=== PATIENT | male | born 1960 | race Caucasian/White ===

== ENCOUNTER 2024-10-18 10:14 | Inpatient (IN) | payer OTHER ==
[~2024-10-18] VITALS: Ht 177.8 cm; Wt 88.5 kg
[2024-10-18] VITALS (16 sets, daily range): BP systolic 112–143; BP diastolic 59–86; PULSE 56–95; RESP 11–20; TEMP 97.8–98.9; O2SAT 95–99
[2024-10-18] MEDS ORDERED: SODIUM CHLORIDE 0.9% 1000ML 1,000 ML ONE (10:17)
[2024-10-18 10:25] LABS: BASOPHILS # (AUTO) 0.1 (0.0-0.1); BASOPHILS % 0.8 % (0.0-1.0); EOSINOPHILS # (AUTO) 0.2 (0.0-0.4); EOSINOPHILS % 1.8 % (0.0-6.0); HEMATOCRIT 52.5 % (38.2-49.6); HEMOGLOBIN 16.8 g/dL (14.0-18.0); LYMPHOCYTES # (AUTO) 2.9 (1.0-3.2); LYMPHOCYTES % 31.6 % (18.0-39.1); MEAN CORPUSCULAR HEMOGLOBIN 32.1 pg (28-32); MEAN CORPUSCULAR VOLUME 100.2 fL (81-99); MONOCYTES # (AUTO) 0.7 (0.2-0.8); MONOCYTES % 7.9 % (4.4-11.3); NEUTROPHILS # (AUTO) 5.3 (2.1-6.9); NEUTROPHILS % 57.6 % (38.7-80.0); PLATELET COUNT 195 x10e3/uL (140-360); RED BLOOD COUNT 5.24 x10e6/uL (4.3-5.7); RED CELL DISTRIBUTION WIDTH 12.4 % (11.7-14.4); WHITE BLOOD COUNT 9.27 x10e3/uL (4.8-10.8)
[2024-10-18] MEDS ORDERED: CLOPIDOGREL BISULFATE 75 MG TAB PO ONE (10:30)
[2024-10-18] MEDS ORDERED: Morphine 4mg INJECTION 4 MG/ML INJ IV STA (10:44)
[2024-10-18 11:08] LABS: ALBUMIN 4.3 g/dL (3.5-5.0); ALBUMIN/GLOBULIN RATIO 1.3 (0.8-2.0); ANION GAP 18.6 mmol/L (8-16); BILIRUBIN,TOTAL 0.5 mg/dL (0.2-1.2); CALCIUM 9.7 mg/dL (8.4-10.2); CREATININE, SERUM 1.1 mg/dL (0.72-1.25); MAGNESIUM 1.9 MG/DL (1.3-2.1); POTASSIUM 4.6 mmol/L (3.5-5.1); TOTAL PROTEIN 7.7 g/dL (6.5-8.1)
[2024-10-18 11:15] LABS: TROPONIN I 0.42 ng/mL (0-0.300)
[2024-10-18] MEDS ORDERED: Morphine 2mg Syringe 2 MG/ML SYR IV PRN (11:15)
[2024-10-18] MEDS ORDERED: ACETAMINOPHEN 325 MG TAB PO PRN ×2 (11:15→13:45)
[2024-10-18] MEDS ORDERED: DEXTROSE 50% SYRINGE 50 ML IV PRN ×3 (11:15→15:45)
[2024-10-18] MEDS ORDERED: ONDANSETRON HCL INJ 2MG/ML 2ML 2 MG/ML VIAL IV PRN (11:15)
[2024-10-18] MEDS ORDERED: HYDROCODONE/APAP 5MG-325MG TAB PO PRN (11:15)
[2024-10-18] MEDS: INSULIN LISPRO 100 UNIT/1 ML 3ML VIAL SQ SCH ×2 (11:30→17:06)
[2024-10-18 11:47] LABS: INR 0.9; PARTIAL THROMBOPLASTIN TIME 32.3 seconds (23.8-35.5); PROTHROMBIN TIME 12.7 seconds (11.9-14.5)
[2024-10-18] MEDS: SODIUM CHLORIDE 0.9% 1000ML 1,000 ML IV STA (12:30)
[2024-10-18] MEDS: HEPARIN SOD (PORCINE) 1000 UNIT/ML 30ML ONE (12:31)
[2024-10-18] MEDS: VERAPAMIL HCL 2.5 MG/ML 2 ML VIAL ONE (12:31)
[2024-10-18] MEDS: ONDANSETRON HCL INJ 2MG/ML 2ML 2 MG/ML VIAL IV STA (12:31)
[2024-10-18] MEDS: MIDAZOLAM HCL 2 MG/2 ML VIAL ONE (12:32)
[2024-10-18] MEDS: FENTANYL CITRATE/PF 100MCG/2 ML INJ ONE (12:32)
[2024-10-18] MEDS: NITROGLYCERIN/D5W 200 MCG/ML 250 ML ONE (12:32)
[2024-10-18] MEDS: HEPARIN SOD/SOD CHLORIDE 2,000 ML ONE (12:33)
[2024-10-18] MEDS: SODIUM CHLORIDE 0.9% 1000ML 1,000 ML ONE (12:34)
[2024-10-18] MEDS: BIVALRIUDIN 250 MG/VIAL VIAL IV ONE (12:34)
[2024-10-18] MEDS: LIDOCAINE HCL 2% LOCAL 20 ML VIAL ONE (12:34)
[2024-10-18] MEDS: IOPAMIDOL 370 MG/ML 100 ML INFUS..BTL INJ ONE ×2 (12:34→12:35)
[2024-10-18] MEDS: PRASUGREL 10 MG TAB ONE (12:35)
[2024-10-18] MEDS: ASPIRIN 81 MG CHEW TAB PO ONE (12:38)
[2024-10-18] MEDS: MUPIROCIN 2% OINT 22 GM TUBE TOP SCH (12:46)
[2024-10-18] MEDS ORDERED: DOCUSATE SODIUM 100 MG CAP PO PRN (13:45)
[2024-10-18] MEDS ORDERED: DIPHENHYDRAMINE HCL 25 MG CAP PO PRN (13:45)
[2024-10-18] MEDS ORDERED: LIDOCAINE 4% PATCH TP PRN (13:45)
[2024-10-18] MEDS ORDERED: BENZONATATE 100 MG CAP PO PRN (13:45)
[2024-10-18] MEDS ORDERED: ALBUTEROL/IPRATROPIUM 3 ML NEB NEB PRN (13:45)
[2024-10-18] MEDS ORDERED: POTASSIUM CHLORIDE 20 MEQ TAB CR PO PRN (13:45)
[2024-10-18] MEDS ORDERED: SIMETHICONE 80 MG CHEW PO PRN (13:45)
[2024-10-18] MEDS ORDERED: HYDRALAZINE HCL 20 MG/ML VIAL IV PRN (13:45)
[2024-10-18] MEDS: SODIUM CHLORIDE 0.9% 1000ML 1,000 ML IV SCH (13:57)
[2024-10-18] MEDS ORDERED: ENOXAPARIN SOD INJ 40 MG/0.4 ML SYR SC SCH (17:00)
[2024-10-18 17:07] LABS: TROPONIN I 0.659 ng/mL (0-0.300)
[2024-10-18] MEDS: ATORVASTATIN 40 MG TAB PO SCH (21:00)
[2024-10-18] MEDS ORDERED: MELATONIN 5 MG TABLET PO PRN (21:00)
[2024-10-19] VITALS (11 sets, daily range): BP systolic 108–133; BP diastolic 65–81; PULSE 62–76; RESP 10–19; TEMP 98.4; O2SAT 92–97
[2024-10-19] MEDS: PRASUGREL 10 MG TAB PO SCH (08:22)
[2024-10-19] MEDS: METOPROLOL SUCCINATE 25 MG TAB XL PO SCH (08:22)
[2024-10-19] MEDS: PANTOPRAZOLE SOD 40 MG TABEC PO SCH (08:22)
[2024-10-19 08:36] LABS: BASOPHILS % 0.5 % (0.0-1.0); EOSINOPHILS # (AUTO) 0.1 (0.0-0.4); EOSINOPHILS % 1.4 % (0.0-6.0); HEMATOCRIT 48.3 % (38.2-49.6); HEMOGLOBIN 15.7 g/dL (14.0-18.0); LYMPHOCYTES # (AUTO) 2.1 (1.0-3.2); LYMPHOCYTES % 25.4 % (18.0-39.1); MEAN CORPUSCULAR HGB CONC 32.5 g/dL (31-35); MEAN CORPUSCULAR VOLUME 98.4 fL (81-99); MONOCYTES # (AUTO) 0.5 (0.2-0.8); MONOCYTES % 6.5 % (4.4-11.3); NEUTROPHILS # (AUTO) 5.4 (2.1-6.9); PLATELET COUNT 168 x10e3/uL (140-360); RED BLOOD COUNT 4.91 x10e6/uL (4.3-5.7); RED CELL DISTRIBUTION WIDTH 12.1 % (11.7-14.4); WHITE BLOOD COUNT 8.14 x10e3/uL (4.8-10.8)
[2024-10-19 09:09] LABS: ALBUMIN 3.5 g/dL (3.5-5.0); ALBUMIN/GLOBULIN RATIO 1.3 (0.8-2.0); ANION GAP 13.4 mmol/L (8-16); BILIRUBIN,TOTAL 0.6 mg/dL (0.2-1.2); CALCIUM 9.3 mg/dL (8.4-10.2); CREATININE, SERUM 0.82 mg/dL (0.72-1.25); POTASSIUM 4.4 mmol/L (3.5-5.1); TOTAL PROTEIN 6.3 g/dL (6.5-8.1)
[2024-10-19 10:05] LABS: TROPONIN I 1.365 ng/mL (0-0.300)
[2024-10-19] MEDS: ASPIRIN 81 MG ENTERIC COATED PO SCH (11:52)
[2024-10-19] MEDS ORDERED: GLIPIZIDE5 MG PO (15:40)
[2024-10-19] MEDS ORDERED: METFORMIN HCL500 MG PO (15:40)
== END 2024-10-19 16:53 | disposition home or self-care (01) | DRG 322 ==
LOC: ER 10:15 → ERHOLD 10:29 → ICU 11:28
PROVIDERS: ADMIT Internal Medicine; ATTEND Internal Medicine
PROC: 027034Z Dilation of Coronary Artery, One Artery with Drug-eluting Intraluminal Device, Percutaneous Approach (ICD-10-PCS; principal; 2024-10-18)
PROC: 4A023N7 Measurement of Cardiac Sampling and Pressure, Left Heart, Percutaneous Approach (ICD-10-PCS; 2024-10-18)
PROC: B2111ZZ Fluoroscopy of Multiple Coronary Arteries using Low Osmolar Contrast (ICD-10-PCS; 2024-10-18)
PROC: B2151ZZ Fluoroscopy of Left Heart using Low Osmolar Contrast (ICD-10-PCS; 2024-10-18)
DX: I21.02 ST elevation (STEMI) myocardial infarction involving left anterior descending coronary artery (principal); E11.9 Type 2 diabetes mellitus without complications; I10 Essential (primary) hypertension; I24.9 Acute ischemic heart disease, unspecified; E78.00 Pure hypercholesterolemia, unspecified; Z79.84 Long term (current) use of oral hypoglycemic drugs; Z79.02 Long term (current) use of antithrombotics/antiplatelets; Z90.49 Acquired absence of other specified parts of digestive tract; F17.200 Nicotine dependence, unspecified, uncomplicated; Z82.49 Family history of ischemic heart disease and other diseases of the circulatory system
CPT/HCPCS: 36415; 71045; 76937; 80053; 80061; 82550; 82948; 83036; 83735; 83880; 84443; 84484; 85025; 85610; 85730; 92928; 93005; 93306; 93458; 99152; 99252; C1725; C1769; C1874; C1887; C1894; J0583; J1644; J2003; J2250; J7030; Q9967